=== PATIENT | female | born 1955 | race Caucasian/White ===

== ENCOUNTER 2016-10-19 14:59 | Inpatient (IN) | payer OTHER ==
--- NOTE | 2016-10-18 11:22 | PREOPHP ---
DATE OF ADMISSION: 10/23/2016 Patient to have surgery with Dr. Sachin Gray 10/23/2016. REASON FOR CONSULTATION: Consultation requested by Dr. Sachin Gray for medical evaluation and inez arance of a 61-year-old woman about to undergo surgery on her lumbar spine. Thank you, Dr. Gray, for allowing us to participate in care of this patient. 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 This will be her third lumbar spine surgery. She is currently being admitted for correction of th e above. In terms of her prior surgical procedures, had a total knee replacement on the left. Had ankle surgery on the left, lumbar spine surgery as mentioned above x2, bladder suspension, left jessica st cyst removal, as well as laparoscopic cholecystectomy. She has had no medical hospitalizations. She has been generally healthy except for two chronic issues, one being hypothyroidism, the other o ne hypertension. MEDICATIONS: She is currently taking the following medications: 1. Ultram 50 mg q.6 h. p.r.n. 2. Synthroid 50 mcg a day. 3. Prilosec 20 mg a day. 4. Losartan 50 mg a day. 5. Takes some medication for hot flashes. ALLERGIES: SHE IS NOT ALLERGIC TO ANY MEDICATIONS. SOCIAL HISTORY: The patient is , has 2 sons, 3 grandchildren, 1 great grandchild. She smoke s a little, approximately 5 cigarettes a day. Alcohol: No. Coffee: Yes. Has no difficulty sleep ing at night, and is currently unemployed. FAMILY HISTORY: Father at age 88 of old age, did have stomach cancer. Mother is 84, has arthr itis and blood pressure issues. Two siblings are in good health. Family history of cancer, hyperte nsion, and thyroid issues. REVIEW OF SYSTEMS HEENT: Positive for periodic headaches. CARDIORESPIRATORY: Denies any chest pain or shortness of breath. GASTROINTESTINAL: Has some signs and symptoms of gastroesophageal reflux and has some colon issues as well. GENITOURINARY: No urgency, frequency. GYNECOLOGIC: Post-menopause, up to date. MUSCULOSKELETAL: Positive for back issues as well as arthritis. NEUROPSYCHIATRIC: Unremarkable. GENERAL HEALTH: As above. PHYSICAL EXAMINATION: VITAL SIGNS: The patient's blood pressure was 130/90, pulse was 80 and regular, respirations were 1 8, temperature 98.2, height 61 inches, weight 193 pounds. GENERAL: The patient was noted to be a well-developed, well-nourished female, alert and cooperative , in no apparent acute distress, oriented to time, place, and person. HEAD, EARS, EYES, NOSE AND THROAT: Head was atraumatic. Eyes: Pupils were equal, reactive to ligh t and accommodation. Fundi were benign. Tympanic membranes were unremarkable. Nose was negative. Mouth was unremarkable. Fair oral hygiene was present. NECK: Supple without any rigidity. Trachea was midline. Thyroid was within normal limits. Neck v eins were flat. Carotid pulses were equal. No bruits were heard. BACK: Revealed scars from prior surgery. CHEST: Symmetrical breasts. Axillary exam did not reveal any masses. Scar was noted on the left b reast from prior excision of cyst. No axillary masses were palpable. LUNGS: Clear to percussion and auscultation. HEART: PMI is fifth intercostal space at the midclavicular line. Regular sinus rhythm was noted. No significant murmurs, rubs, or gallops being elicited. ABDOMEN: Soft, good bowel sounds were noted. No significant organomegaly, masses, or tenderness. GENITALIA: Normal female external genitalia. PELVIC/RECTAL: Per her angle shearer, up to date. EXTREMITIES: Not revealing clubbing, edema, or cyanosis. Scar from prior surgery was noted, and pe ripheral pulses were physiologic. SKIN: Moist and warm without any eruptions. No gross lymphadenopathy was noted. NEUROLOGIC: Grossly intact. IMPRESSION 1. Lumbar disk disease, particularly at L3-L4 with disk and spinal stenosis. 2. Hypertension. 3. Hypothyroidism. 4. Gastroesophageal reflux disease. 5. Menopausal syndrome. 6. Stable health. Review of laboratory and other data revealed the following: The patient's chemistry panel including electrolytes, glucose, BUN, creatinine, and liver function tests were basically within normal limit s. CBC, UA, PT and PTT were normal as well. The patient's EKG was normal as was her chest x-ray. Dr. Gray, I see no contraindication in this patient undergoing current proposed surgery under de sired form of anesthesia, and will be more than happy to follow her along with you [facility]. Thank you again, Dr. Gray, for allowing us to participate in care of this patient. Dictated By: AMILCAR MCCALLUM/AVANI Conf#: [id number] DID#: [id number]
[~2016-10-19] VITALS: Ht 156.2 cm; Wt 87.4 kg
[2016-10-23] VITALS (29 sets, daily range): BP systolic 107–159; BP diastolic 53–91; PULSE 60–104; RESP 11–18; Ht 156.2 cm; Wt 87.4 kg
[2016-10-23] MEDS ORDERED: CEFAZOLIN 2 GM/50 ML (PMX) 50 ML IVPB ONE (05:00)
[2016-10-23] MEDS ORDERED: LACTATED RINGER'S 1,000 ML IV* ONE (05:00)
[2016-10-23] MEDS ORDERED: LEVO50TA74 PO (06:46)
[2016-10-23] MEDS ORDERED: OMEP20CA16 PO (06:46)
[2016-10-23] MEDS ORDERED: GELATIN SIZE 100 SPONGE ONE (06:48)
[2016-10-23] MEDS ORDERED: THROMBIN 5000 UNIT VIAL ONE (06:48)
[2016-10-23] MEDS ORDERED: BUPIVACAINE 0.25% (MPF) 10 ML 10 ML VIAL ONE (06:48)
[2016-10-23] MEDS ORDERED: POLYMYXIN/BACITRACIN 1L IRRIG ONE (06:52)
[2016-10-23] MEDS ORDERED: LIDOCAINE 2% (SDV) 5 ML INJ ONE (06:55)
[2016-10-23] MEDS ORDERED: SUCCINYLCHOLINE CHLORIDE 100 MG/5 ML SYG IV ONE (06:55)
[2016-10-23] MEDS ORDERED: ROCURONIUM 50 MG INJ ONE (06:55)
[2016-10-23] MEDS ORDERED: NEOSTIGMINE 3 MG/3 ML SYRINGE ONE ×2 (06:55→08:13)
[2016-10-23] MEDS ORDERED: GLYCOPYRROLATE 1 MG INJ ONE (06:55)
[2016-10-23] MEDS ORDERED: PROPOFOL 20 ML ONE (06:55)
[2016-10-23] MEDS ORDERED: MEPERIDINE 100 MG INJ ONE (06:55)
--- NOTE | 2016-10-23 06:58 | HPN ---
Date/Time of Note Date/Time of Note DATE: 10/23/16 TIME: 06:58 Interval H&P Admission Note Pt. seen H&P reviewed: No system changes MARI WALKER MD Oct 23, 2016 06:58
[2016-10-23] MEDS ORDERED: LOSA100T7 PO (07:03)
[2016-10-23] MEDS ORDERED: TERB250T9 PO (07:03)
[2016-10-23] MEDS ORDERED: CITA10TA84 PO (07:03)
--- NOTE | 2016-10-23 08:05 | RADRPT ---
PROCEDURE: XR Lumbar Spine one view. CLINICAL INDICATION: Low back pain. Intraoperative. TECHNIQUE: Prone portable cross-table lateral. COMPARISON: Prior study done earlier the same day. FINDINGS: For the purposes of this report, the last apparent true disc level is considered to be L5-S1. Based on this, the posterior surgical instrument is present at the L3 spinous process level. IMPRESSION: 1. Intraoperative imaging as described above. RPTAT: QQ .Sam Martínez MD, MD Date Time Electronically viewed and signed by .Sam Martínez MD, MD on 10/23/2016 08:05 .R/
--- NOTE | 2016-10-23 08:05 | RADRPT ---
PROCEDURE: XR Lumbar Spine one view. CLINICAL INDICATION: Low back pain. Intraoperative. TECHNIQUE: Prone portable cross-table lateral. COMPARISON: No prior studies are available for comparison. FINDINGS: For the purposes of this report, the last apparent true disc level is considered to be L5-S1. Based on this, the posterior needle markers are present at lower L3 and upper L5 levels IMPRESSION: 1. Intraoperative imaging as described above. RPTAT: QQ .Sam Martínez MD, MD Date Time Electronically viewed and signed by .Sam Martínez MD, on 10/23/2016 08:05 .R/
[2016-10-23] MEDS ORDERED: METOCLOPRAMIDE 10 MG INJ ONE (08:13)
[2016-10-23] MEDS ORDERED: ONDANSETRON 4 MG INJ ONE (08:13)
[2016-10-23] MEDS ORDERED: morphine (1 MG/ML) 10ML SYRINGE IV PRN ×2 (09:00)
[2016-10-23] MEDS ORDERED: MIDAZOLAM 1 MG/ML 2 ML INJ IV PRN (09:00)
[2016-10-23] MEDS ORDERED: EPHEDrine SULFATE 50 MG/5 ML SYG IV PRN (09:00)
[2016-10-23] MEDS ORDERED: hydrALAzine 20 MG INJ IV PRN ×2 (09:00→19:00)
[2016-10-23] MEDS ORDERED: ONDANSETRON 4 MG INJ IV PRN ×2 (09:00→11:00)
[2016-10-23] MEDS ORDERED: HYDROmorphONE (0.2 MG/ML) 10ML SYG IV PRN (09:00)
[2016-10-23] MEDS ORDERED: MEPERIDINE 25 MG INJ IV PRN (09:00)
[2016-10-23] MEDS ORDERED: DIPHENHYDRAMINE 50 MG INJ IV PRN (09:00)
[2016-10-23] MEDS ORDERED: LABETALOL HCL 20MG INJ IV PRN (09:00)
[2016-10-23] MEDS ORDERED: METOCLOPRAMIDE 10 MG INJ IV PRN (09:00)
[2016-10-23] MEDS ORDERED: FENTAnyl 50 MCG/ML VIAL IV PRN ×2 (09:00)
[2016-10-23] MEDS ORDERED: HYDROmorphONE 0.2 MG/ML PCA ONE (09:31)
--- NOTE | 2016-10-23 09:41 | OPPN ---
Date/Time of Note Date/Time of Note DATE: 10/23/16 TIME: 09:29 Operative/Procedure Note Pre-Operative Diagnosis Lumbar spinal stenosis at L3 Herniated disc L3-4 Post-Operative Diagnosis Same Procedure Central decompressive laminectomy at L3 Microdiscectomy L3-4 on the right Medial facetectomy and foraminotomy L3-4 bilaterally Revision of scar (6 cm) Lateral localizing lumbar radiographs (2) Intraoperative nerve monitoring (60 minutes) Surgeon: MARI WALKER MD Glass Beveller: ERIC LAWRENCE Anesthesiologist: UTE TEJEDA MD Findings 1. Moderately severe lumbar spinal stenosis at L3 2. Moderate central and right paracentral herniation of the L3-4 disc Blood Usage/Administration None Implants/Grafts: Not applicable Implants/Grafts None Estimated blood loss: 0 - 10 ml's Drains 2 medium Hemovac drains employed Specimens Disc L3-4 on the right Spinous process of L3 Complications: None Anesthesia type: general MARI WALKER MD Oct 23, 2016 09:39
[2016-10-23] MEDS: HYDROmorphONE (0.2 MG/ML) 10ML SYG IV PRN ×4 (09:59→10:16)
[2016-10-23] MEDS ORDERED: CEPASTAT LOZENGE MT PRN (11:00)
[2016-10-23] MEDS ORDERED: HYDROCODONE/APAP (5/325) TAB PO PRN (11:00)
[2016-10-23] MEDS ORDERED: TRIMETHOBENZAMIDE 100 MG/ML VIAL IM PRN (11:00)
[2016-10-23] MEDS ORDERED: NALOXONE (0.4 MG/ML) INJ IV PRN (11:00)
[2016-10-23] MEDS ORDERED: BETHANECHOL 25 MG TAB PO PRN (11:00)
[2016-10-23] MEDS ORDERED: AL HYDROX/MG HYDROX/SIMETH 30 ML CUP PO PRN (11:00)
[2016-10-23] MEDS ORDERED: DIAZEPAM 5 MG/ML SYG IM PRN (11:00)
[2016-10-23] MEDS ORDERED: HYDROmorphONE 0.2 MG/ML PCA IV SCH (11:00)
[2016-10-23] MEDS ORDERED: DIAZEPAM 5 MG TAB PO PRN (11:00)
[2016-10-23] MEDS ORDERED: ZOLPIDEM 5 MG TAB PO PRN (11:00)
[2016-10-23] MEDS ORDERED: PROCHLORPERAZINE 10 MG TAB PO PRN (11:00)
[2016-10-23] MEDS ORDERED: NACL 0.9% 3 ML SYG IV SCH (11:00)
--- NOTE | 2016-10-23 11:59 | OPR ---
DATE OF OPERATION: 10/23/2016 PREOPERATIVE DIAGNOSIS: 1. Herniated disk L3-L4 centrally with extruded fragments above the disk level. 2. Moderately severe spinal stenosis at L3-L4. 3. Status post lumbar fusion at L4-L5. POSTOPERATIVE DIAGNOSES: 1. Herniated disk L3-L4 centrally with extruded fragments above the disk level. 2. Moderately severe spinal stenosis at L3. 3. Status post lumbar fusion at L4-L5. OPERATION PERFORMED: 1. Central decompressive laminectomy at L3. 2. Microdiskectomy L3-4 on the right. 3. Medial facetectomy and foraminotomy, L3-4 bilaterally. 4. Revision of scar (6 cm). 5. Intraoperative nerve monitoring (60 minutes). 6. Lateral localized lumbar radiographs (2) SURGEON: Sachin Gray MD CELL LEAD: Trinidad Oseguera PA-C ANESTHESIA: General endotracheal. ANESTHESIOLOGIST: Curtis Arcos MD ESTIMATED BLOOD LOSS: 10 mL, none replaced. DRAINS: Two medium Hemovac drains employed. COMPLICATIONS: None. PERTINENT HISTORY AND PHYSICAL: This is a 61-year-old female who sustained an injury to her back in course of employment on 04/13/1998. She has had extensive care since that time, has remained sympt omatic with back and bilateral leg pain, right greater than left, which have been unrelieved by cons ervative management. She has undergone a number of diagnostic studies including an MRI of the lumba r spine, which demonstrated herniation of the L3-4 disk centrally and to the right with extruded fra gments above the level of disk space behind the body of L3, along with moderately severe central daria nosis at that level. Postsurgical changes at L4-L5 were also noted. Treatment options were discuss ed with the patient, she elected to proceed with surgery. OPERATIVE FINDINGS: Moderately severe central stenosis at L3-4 and a moderate central herniation of the L3-4 disk with extruded fragments above the disk level was confirmed. The baseline intraoperat christa nerve monitoring revealed a decrease in the L4 potentials bilaterally of 40%. These returned to normal at the completion of the surgery. OPERATIVE PROCEDURE: With the patient in supine position after satisfactory induction of general en dotracheal anesthesia by Dr. Arcos, the patient was turned to the prone kneeling position on the [facility] ngs frame. All pressure points were carefully padded. The back was prepped and draped in usual daria rile fashion. Athrombic pumps were applied to the legs below the knees to prevent venous stasis dur ing and after the procedure. An indwelling Cárdenas catheter was also placed preoperatively to facilit ate bladder drainage during and after the procedure. Two spinal needles were placed next to what wa s felt to be the L3 and L4 spinous processes, lateral roentgenogram was taken which confirmed anatom ic localization. A 6 cm incision was carried out midline through the previous lumbar scar through s kin and subcutaneous tissue to deep fascia. Superficial retractors were placed and hemostasis secur ed with electrocautery. Throughout procedure, copious amounts of antibacterial irrigating solution were used to periodically irrigate the wound. The fascia was incised in midline with a hot knife and a bilateral subperiosteal dissection carried out at L3. Deep retractors were placed and deep hemostasis secured with electrocautery. A second i ntraoperative radiograph was taken with Jesusita clamps placed in what was felt to be the spinous proc ess of L3 and this was confirmed with second x-ray. A central decompressive laminectomy was then ca rried out using a Gilson right-angle bone rongeur, Leksell rongeur, Kerrison punches and curettes. Ligamentum flavum was incised with sharp dissection. The operating microscope was then moved into place. A medial facetectomy and foraminotomy was accomplished at L3-4 bilaterally using small hand osteotome, mallet, Kerrison punches and curettes. The L4 root on the right was then mobilized media lly and protected with Natasha'Barberico nerve retractor using microdissection technique. This revealed a he rniation of the L3-4 disk. A 15 blade knife used to cut a rectangular window in the annulus and posterior longitudinal ligament , multiple degenerative disk fragments were harvested with pituitary rongeurs and sent to laboratory for pathologic study. Additional fragments were harvested using Dedra curettes. A thorough sear ch of the floor of the canal was made with an arthroscopic probe and no additional fragments were en countered. The epidural hemostasis was secured with bipolar electrocautery on low setting. The ane sthesiologist then asked to perform a Valsalva maneuver at 40 mmHg and no spinal fluid leak was note d. The wound was then closed in layers over 2 medium Hemovac drains, one below the fascia and one a albina the fascia using #1 Vicryl Stratafix sutures on the deep paralumbar musculature and deep fascia of back, 2-0 Stratafix suture on the subcu tissue, and a 4-0 Vicryl subcuticular cosmetic closing s uture on the skin. Dermabond and sterile compressive dressings were applied. The patient having to lerated procedure well, was then turned to the supine position onto her bed and extubated by Dr. Jaiden Arcos. She was transported to the recovery room in satisfactory condition. At the conclusion of the procedure, sponge, instrument, and needle counts were all correct. NEED FOR LOWER IN SUPERVISOR: During this spinal surgical procedure, my yard assistant was used to retrac t and protect the spinal nerves and dural sac. My yard assistant also employed the suction catheters to e vacuate blood from the surgical field to improve visualization of the neural structures. The assista nt was medically necessary to facilitate the completion of the surgery in a safe and expeditious man ner. [facility] of [place] regulations, as well as hospital bylaws, preclude the use of non-licensed [facility] care personnel such as operating room technicians, to perform these functions. Throughout the procedure, neural monitoring was carried out by [employer] including EMG, SSEP and MEP monitoring of the L3, L4, L5, and S1 nerve roots bilaterally along with spinal cord potentials. These were interpreted by neurologist employed by [employer]. Dictated By: SACHIN GRAY MD TM/NTS Conf#: [id number] DID#: [id number] CC: AMILCAR STOKES MD;*End*
[2016-10-23] MEDS: DEXTROSE 5%-0.45% NACL 1,000 ML IV SCH ×3 (12:09→21:13)
[2016-10-23] MEDS: CEFAZOLIN 1 GM/50 ML (PMX) 50 ML IVPB SCH ×3 (12:09→23:08)
--- NOTE | 2016-10-23 16:11 | CONS ---
DATE OF ADMISSION: 10/23/2016 DATE OF CONSULTATION: 10/23/2016 POSTOPERATIVE CONSULT FOLLOW UP Patient had surgery with Dr. Sachin Gray 10/23/2016 Patient is somewhat drowsy postoperatively; however, easily arousable seen on floor, did recognize me and answered questions appropriately. PHYSICAL EXAMINATION: VITAL SIGNS: Blood pressure 142/63, pulse 84 and regular, respirations 18, O2 saturation 99% on nasal cannula. GENERAL: The patient was afebrile earlier today. HEENT: Unremarkable. LUNGS: Clear. HEART: Reveals a regular rhythm. NEUROLOGIC: Unremarkable. IMPRESSION: 1. Status post lumbar spine surgery, particularly L3-L4. 2. Hypertension. 3. Hypothyroidism. 4. Gastroesophageal reflux. 5. Menopausal syndrome. DISCUSSION: 1. Plan is to restart the patient's medications including Synthroid, Prilosec and Losartan. 2. As well as to monitor and follow her along medically with you. Thank you again, Dr. Gray, for allowing us to participate in care of this patient. Dictated By: AMILCAR STOKES MD SS/AVANI Conf#: [id number] DID#: [id number] MTDD
[2016-10-23] MEDS: ACETAMINOPHEN 325 MG TAB PO PRN (16:38)
[2016-10-23] MEDS: RANITIDINE 150 MG TAB PO SCH (20:27)
[2016-10-24] MEDS: DIPHENHYDRAMINE 50 MG CAP PO PRN ×2 (01:00→09:42)
[2016-10-24] MEDS: ACETAMINOPHEN 325 MG TAB PO PRN (02:58)
[2016-10-24 05:19] LABS: HEMATOCRIT 38.2 % (37.0-47.0); HEMOGLOBIN 11.7 g/dl (12.0-16.0)
[2016-10-24 05:20] VITALS: BP 137/74; PULSE 76; RESP 18
[2016-10-24 05:50] LABS: POTASSIUM 3.9 mmol/L (3.5-5.1)
[2016-10-24 05:52] LABS: CREATININE 0.88 mg/dl (0.44-1.00)
[2016-10-24 05:53] LABS: CALCIUM 8.7 mg/dl (8.4-10.2)
[2016-10-24] MEDS ORDERED: PANTOPRAZOLE (EC) 40 MG TAB PO SCH (06:00)
[2016-10-24] MEDS: CEFAZOLIN 1 GM/50 ML (PMX) 50 ML IVPB SCH (06:03)
[2016-10-24] MEDS ORDERED: LEVOTHYROXINE 50 MCG TAB PO SCH (07:00)
--- NOTE | 2016-10-24 07:08 | PN ---
Date/Time of Note Date/Time of Note DATE: 10/24/16 TIME: 07:07 Assessment/Plan Lines/Catheters IV Catheter Type (from Nrsg): Saline Lock Cárdenas in Place (from Nrsg): Yes Subjective 24 Hr Interval Summary Patient is postop day #1 from lumbar decompression discectomy. She is complaining mainly of headaches, she denies any incisional pain. We will wean off INTERACTIVE DEVELOPER. She denies any leg pain, neurovascular structures are intact. Hemoglobin today is 11.7. Vital signs are stable. Hemovac drain output overnight was 70 cc, this will be monitored today. Possible discharge home later today if Hemovac is ready to be removed as she is cleared by physical therapy and internal medicine Exam/Review of Systems Vital Signs Vitals Vital Signs Date Time Temp Pulse Resp B/P Pulse Ox O2 Delivery O2 Flow Rate FiO2 10/24/16 05:20 18 10/24/16 05:20 98.1 76 137/74 100 Nasal Cannula 2.0 Intake and Output 10/23/16 10/23/16 10/24/16 15:00 23:00 07:00 Intake Total 1950 ml 810 ml 2300 ml Output Total 410 ml 875 ml 1470 ml Balance 1540 ml -65 ml 830 ml Results Result Diagram: 10/24/16 0425 10/24/16 0425 ERIC LAWRENCE Oct 24, 2016 07:08
[2016-10-24] MEDS ORDERED: BETHANECHOL 25 MG TAB PO PRN (08:00)
[2016-10-24] MEDS: RANITIDINE 150 MG TAB PO SCH (08:43)
[2016-10-24] MEDS: HYDROCODONE/APAP (5/325) TAB PO PRN ×3 (08:44→14:22)
[2016-10-24 08:45] VITALS: BP 138/65; RESP 18
[2016-10-24] MEDS ORDERED: LOSARTAN 50 MG TAB PO SCH (09:00)
[2016-10-24] MEDS ORDERED: DOCUSATE SODIUM 100 MG CAP PO SCH (09:00)
[2016-10-24] MEDS ORDERED: TERBINAFINE 250 MG TAB PO SCH (09:00)
[2016-10-24] MEDS ORDERED: ASCORBIC ACID 500 MG TAB PO SCH (09:00)
[2016-10-24] MEDS: FERROUS SULFATE (EC) 325 MG TAB PO SCH ×2 (09:00→13:00)
[2016-10-24] MEDS ORDERED: CITALOPRAM 20 MG TAB PO SCH ×2 (09:00→21:00)
[2016-10-24 13:56] LABS: ADD UMIC YES; URINE BILIRUBIN (Dip) NEGATIVE (NEGATIVE); URINE BLOOD (Dip) 2+ (NEGATIVE); URINE COLOR LT. YELLOW (YELLOW); URINE GLUCOSE (Dip) NEGATIVE (NEGATIVE); URINE KETONES (Dip) NEGATIVE (NEGATIVE); URINE LEUKOCYTE ESTERASE (Dip) 1+ (NEGATIVE); URINE NITRITE (Dip) NEGATIVE (NEGATIVE); URINE TOTAL PROTEIN (Dip) NEGATIVE (NEGATIVE); URINE UROBILINOGEN (Dip) 0.2 E.U./dL (0.1-1.0)
[2016-10-24 14:11] LABS: URINE RBCS 0-2 /HPF (0)
--- NOTE | 2016-10-24 14:46 | CONS ---
DATE OF ADMISSION: 10/23/2016 DATE OF CONSULTATION: 10/24/2016 TIME OF VISIT: Approximately 7:45 a.m. HISTORY OF PRESENT ILLNESS: The patient states she has a headache, does not know if it is from her pain medication or from her blood pressure. Otherwise, had a relatively decent night. PHYSICAL EXAMINATION: VITAL SIGNS: Revealed the following: Blood pressure 138/65, O2 sat 99% on room air, pulse 84, resp irations 19, temperature 97.8. HEENT: Unremarkable. LUNGS: Clear. HEART: Reveals a regular rhythm. Oral exam unremarkable. IMPRESSION: 1. Status post lumbar spine surgery. 2. Hypertension. 3. Hypothyroidism. DISCUSSION: Laboratory data this morning revealed the following: Hemoglobin 11.7, hematocrit 38.2. Chemistries revealed normal sodium, potassium, chloride, CO2 was minimally elevated, BUN and creat inine, glucose and calcium were normal. DISCUSSION: Should there be any problems with her blood pressure, the patient should be starting h er medications at this particular point in time and should be responsive in terms of headache. Ther e is also a possibility that the narcotics that are responsible for her headaches, she has been not using them and feels a little bit better condition today is stable; however, complaining of headache s. Thank you again, Dr. Gray, for allowing us to participate in care of this patient. Dictated By: AMILCAR MCCALLUM/AVANI Conf#: [id number] DID#: [id number]
== END 2016-10-24 15:30 | disposition home or self-care (01) | DRG 520 ==
LOC: REC 14:59 → UNDOADMIN 14:59 → REC 10-23 05:19 → EDSTATUS 10-23 07:00 → MS1 10-23 11:04
PROVIDERS: ADMIT Orthopaedic Surgery; ATTEND Orthopaedic Surgery
PROC: 0SB20ZZ Excision of Lumbar Vertebral Disc, Open Approach (ICD-10-PCS; 2016-10-23)
PROC: 01NB0ZZ Release Lumbar Nerve, Open Approach (ICD-10-PCS; principal; 2016-10-23 07:00)
DX: M48.06 Spinal stenosis, lumbar region (principal); I10 Essential (primary) hypertension; M51.26 Other intervertebral disc displacement, lumbar region; L90.5 Scar conditions and fibrosis of skin; E03.9 Hypothyroidism, unspecified; K21.9 Gastro-esophageal reflux disease without esophagitis
CPT/HCPCS: 72020; 80048; 81001; 81003; 85014; 85018; 86850; 86900; 86901; 86920; 87086; 97116; 97162; 97530; J0330; J0690; J1170; J1200; J2175; J2405; J2710; J2765; J3010; J7042; J7120